=== PATIENT | male | born 1975 | race Caucasian/White ===

== ENCOUNTER 2018-03-20 10:11 | Inpatient (IN) | payer SELFPAY ==
[2018-03-20 11:03] LABS: ADD MAN DIFF? NO
[2018-03-20 11:05] LABS: BASO % 1 % (0-3); EOS # 0.2 x10^3/uL (0.0-0.7); EOS % 3 % (0-3); HEMATOCRIT 42.4 % (39.0-53.0); HEMOGLOBIN 14.4 g/dL (13.0-17.5); LYMPH # 1.2 x10^3/uL (1.0-4.8); LYMPH % 20 % (24-48); MEAN CORPUSCULAR HEMOGLOBIN 30 pg (25-35); MEAN CORPUSCULAR HGB CONC 34 g/dL (31-37); MEAN CORPUSCULAR VOLUME 88 fL (79-100); MONO # 0.3 x10^3/uL (0.0-1.1); MONO % 6 % (0-9); NEUT # 4.2 x10^3uL (1.8-7.7); NEUT % 71 % (31-73); PLATELET COUNT 208 x10^3/uL (140-400); RED BLOOD COUNT 4.81 x10^6/uL (4.30-5.70); RED CELL DISTRIBUTION WIDTH 14.1 % (11.5-14.5); WHITE BLOOD COUNT 5.9 x10^3/uL (4.0-11.0)
[2018-03-20] MEDS: IV NORMAL SALINE 1000ML BAG 1,000 ML IV (11:12)
[2018-03-20] MEDS: ASPIRIN CHEWABLE 81 MG TABLET. PO (11:12)
[2018-03-20] MEDS: NITROGLYCERIN SUBLINGUAL 0.4 MG BOTTLE OF 25. SL ×3 (11:15→13:37)
[2018-03-20 11:16] LABS: ANION GAP 7 (6-14); BLOOD UREA NITROGEN 14 mg/dL (8-26); BUN/CREATININE RATIO 14 (6-20); CALCIUM 8.3 mg/dL (8.5-10.1); CARBON DIOXIDE 28 mmol/L (21-32); CHLORIDE 104 mmol/L (98-107); GFR 82.3; GLUCOSE 110 mg/dL (70-99); POTASSIUM 3.6 mmol/L (3.5-5.1); PROTHROMBIN TIME PATIENT 12.6 SEC (11.7-14.0); SODIUM 139 mmol/L (136-145)
[2018-03-20 11:19] LABS: D-DIMER 0.27 ug/mlFEU (0.00-0.50)
[2018-03-20 11:22] LABS: ALBUMIN 3.6 g/dL (3.4-5.0); ALK PHOS 74 U/L (46-116); ALT (SGPT) 27 U/L (16-63); AST (SGOT) 15 U/L (15-37); TOTAL BILIRUBIN 0.7 mg/dL (0.2-1.0); TOTAL PROTEIN 7.2 g/dL (6.4-8.2)
[2018-03-20 11:25] LABS: TROPONINI < 0.017 ng/mL (0.000-0.055)
[2018-03-20 11:30] LABS: NT-PRO BNP 13 pg/mL (0-124)
[2018-03-20 13:10] LABS: TROPONINI < 0.017 ng/mL (0.000-0.055)
[2018-03-20] MEDS: fentaNYL PF VIAL 100 MCG/2 ML VIAL IV ×2 (13:45→20:35)
[2018-03-20] MEDS ORDERED: ONDANSETRON PF 4 MG/2 ML VIAL. IV (15:15)
[2018-03-20] MEDS ORDERED: METOPROLOL TARTRATE 5 MG/5 ML VIAL. IVP (17:00)
[2018-03-20 17:21] LABS: CHOLESTEROL 173 mg/dL (0-200); HDLC 34 mg/dL (40-60); LDLC 116 mg/dL (0-100); NON-HDL CHOLESTEROL 139 mg/dL (0-129); TRIGLYCERIDES 117 mg/dL (0-150); VLDLC 23 mg/dL (0-40)
[2018-03-20 17:21] LABS: MAGNESIUM 2.1 mg/dL (1.8-2.4)
[2018-03-20] MEDS: traMADol 50 MG TABLET PO (17:21)
[2018-03-20 17:22] LABS: CHOLESTEROL/HDL RATIO 5.1
[2018-03-20 17:27] LABS: TROPONINI < 0.017 ng/mL (0.000-0.055)
[2018-03-20] MEDS: ACETAMINOPHEN 500 MG TABLET PO (19:38)
[2018-03-20] MEDS: PANTOPRAZOLE 40 MG TABLET.DR. PO (20:31)
[2018-03-20 20:36] LABS: TROPONINI < 0.017 ng/mL (0.000-0.055)
[2018-03-21] MEDS: traMADol 50 MG TABLET PO (04:29)
[2018-03-21] MEDS ORDERED: MAG HYDROX/ALUMINUM HYD/SIMETH 30 ML ORAL.SUSP PO (10:00)
[2018-03-21] MEDS: PANTOPRAZOLE 40 MG TABLET.DR. PO (10:42)
[2018-03-21] MEDS ORDERED: PANTOPRAZOLE 40 MG TABLET.DR. PO (16:30)
== END 2018-03-21 12:45 | disposition home or self-care (01) | DRG 313 ==
LOC: ER 10:11 → 2 NORTH 13:30
DX: R07.89 Other chest pain (principal); I47.1 Supraventricular tachycardia; E66.9 Obesity, unspecified; E78.5 Hyperlipidemia, unspecified; Z68.34 Body mass index [BMI] 34.0-34.9, adult; I10 Essential (primary) hypertension; K21.9 Gastro-esophageal reflux disease without esophagitis; M17.11 Unilateral primary osteoarthritis, right knee; Z79.899 Other long term (current) drug therapy; Z82.49 Family history of ischemic heart disease and other diseases of the circulatory system; Z86.718 Personal history of other venous thrombosis and embolism; Z87.11 Personal history of peptic ulcer disease; Z87.19 Personal history of other diseases of the digestive system; Z88.9 Allergy status to unspecified drugs, medicaments and biological substances; Z88.5 Allergy status to narcotic agent; Z88.8 Allergy status to other drugs, medicaments and biological substances; Z91.040 Latex allergy status; Z80.9 Family history of malignant neoplasm, unspecified; R55 Syncope and collapse
CPT/HCPCS: 36415; 71045; 80053; 80061; 83735; 83880; 84443; 84484; 85025; 85379; 85610; 93005; 93306; 96374; 99285; 99285-25; J3010; J7030